=== PATIENT | female | born 1950 | race Caucasian/White ===

== ENCOUNTER 2019-01-04 21:59 | Emergency (ER) | payer MEDICARE ==
[2019-01-04] MEDS ORDERED: NORMAL SALINE 1000 ML 1,000 ML IV ONE (23:16)
--- NOTE | 2019-01-04 23:18 | ER Document Report ---
ED GI/ - General Chief Complaint: Nausea/Vomiting Stated Complaint: NAUSEA,VOMITING,DIZZINESS Time Seen by Provider: 01/04/19 23:03 Notes: Patient is a 68-year-old female that comes emergency department for chief complaint of vomiting, diarrhea, generalized abdominal pain, and she believes she passed out after becoming very dizzy. She states she vomited at least 5 times, had at least this many episodes of nonbloody diarrhea, got very ligh theaded, laid on the couch, and blacked out. She denies any fall injury. She denies fever, flank pain, headache. No obvious sick contacts, denies recent products or recent travel. Past medical history of Alzheimer's, fibromyalgia, family at bedside. TRAVEL OUTSIDE OF THE [place] IN LAST 30 DAYS: No - Related Data Allergies/Adverse Reactions: No Known Allergies Allergy (Unverified 01/04/19 22:20) Past Medical History - General Information source: Patient - Social History Smoking Status: Never Smoker Chew tobacco use (# tins/day): No Frequency of alcohol use: None Drug Abuse: None Lives with: Family Family History: Reviewed & Not Pertinent Patient has suicidal ideation: No Patient has homicidal ideation: No - Past Medical History Cardiac Medical History: Reports: Hx Hypercholesterolemia, Hx Hypertension Psychiatric Medical History: Reports: Hx Depression - anxiety - Immunizations Immunizations up to date: Yes Hx Diphtheria, Pertussis, Tetanus Vaccination: Yes Review of Systems - Review of Systems Constitutional: See HPI EENT: No symptoms reported Cardiovascular: See HPI Respiratory: No symptoms reported Gastrointestinal: See HPI Genitourinary: No symptoms reported Female Genitourinary: No symptoms reported Musculoskeletal: No symptoms reported Skin: No symptoms reported Hematologic/Lymphatic: No symptoms reported Neurological/Psychological: See HPI Physical Exam - Vital signs Vitals: Resp 19 01/04/19 22:05 - Notes Notes: GENERAL: Alert, interacts well. No acute distress. HEAD: Normocephalic, atraumatic. EYES: Pupils equal, round, and reactive to light. Extraocular movements intact. ENT: Oral mucosa moist, tongue midline. Oropharynx unremarkable. Airway patent. NECK: Full range of motion. Supple. Trachea midline. LUNGS: Clear to auscultation bilaterally, no wheezes, rales, or rhonchi. No respiratory distress. HEART: Regular rate and rhythm. No murmur ABDOMEN: Mild generalized abdominal tenderness, nonspecific, no guarding, bowel sounds are fast GENITOURINARY: Deferred EXTREMITIES: Moves all 4 extremities spontaneously. No edema, normal radial and dorsalis pedis pulses bilaterally. No cyanosis. BACK: no cervical, thoracic, lumbar midline tenderness. No saddle anesthesia, normal distal neurovascular exam. Moves all extremities in full range of motion. NEUROLOGICAL: Alert and oriented x3. Normal speech. Cranial nerves II through XII grossly intact. PSYCH: Normal affect, normal mood. SKIN: Slightly pale Course - Re-evaluation Re-evalutation: Patient initially slightly pale and has very mild generalized abdominal tenderness. Vital signs unremarkable. Patient was given IV fluids and symptom management. CBC unremarkable, chemistry unremarkable, urinalysis nonspecific w ith ketones. EKG unremarkable, troponin negative. Stool white cells negative. On reevaluation patient smiling and well-appearing, states she feels 100% better, no current complaints. She also tells me now that she had eaten shrimp for dinner and within a short time following she started feeling abdominal upset and then started vomiting and diarrhea preceding her reported syncopal episode which happened after multiple episodes. She requests to go home. Repeat abdominal exam is completely benign. Based on her work-up, improvement, history, I suspect she had ingestion of a toxin or has a viral illness. Orthostatic vital signs were performed and completely unremarkable. Patient will be discharged with follow-up, symptom management, return precautions which were discussed with patient and significant other. They state appreciation and agreement. C. difficile negative - Vital Signs Vital signs: Temp Pulse Resp BP Pulse Ox 97.8 F 76 11 L 130/75 H 99 01/04/19 22:56 01/05/19 01:48 01/05/19 02:01 01/05/19 02:00 01/05/19 02:01 - Laboratory Result Diagrams: 01/04/19 22:35 01/04/19 22:35 Laboratory results interpreted by me: 01/04/19 01/04/19 01/04/19 22:35 22:35 23:55 MCV 99 H MCH 34.2 H Greer % (Auto) 1.7 L Absolute Neuts (auto) 8.3 H Seg Neutrophils % 80.9 H Est GFR (MDRD) Non-Af 58 L Direct Bilirubin 0.6 H AST 38 H Urine Protein 100 H Urine Ketones TRACE H Urine Blood MODERATE H Urine Bilirubin SMALL H Urine Urobilinogen 4.0 H - EKG Interpretation by Me Additional EKG results interpreted by me: EKG shows sinus rhythm at a rate of 77, QTC of 485, normal axis, no T wave inversions or ST segment changes in consecutive leads, slightly flattened T waves in leads I and aVL. Discharge - Discharge Clinical Impression: Nausea vomiting and diarrhea Episode of syncope Qualifiers: Syncope type: unspecified Qualified Code(s): R55 - Syncope and collapse Abdominal pain Qualifiers: Abdominal location: generalized Qualified Code(s): R10.84 - Generalized abdominal pain Condition: Stable Disposition: HOME, SELF-CARE Additional Instructions: Your evaluation and work-up are reassuring. My strong suspicion is that you ingested a food toxin that your body violently rejected with vomiting and diarrhea. Take the medications as prescribed if needed, start with plenty of fluids and bland diet, slowly progressed. Symptoms should simply resolve. We do have a stool culture growing in our lab. Return if you worsen including severe abdominal pain, fever, uncontrolled vomiting, or any other concerning or worsening symptoms. Prescriptions: Ondansetron [Zofran Odt 4 mg Tablet] 1 - 2 tab PO Q4H PRN #15 tab.rapdis PRN Reason: For Nausea/Vomiting
[2019-01-04] MEDS ORDERED: MORPHINE SULFATE 10 MG/ML INJ IV ONE (23:34)
[2019-01-04 23:47] LABS: ABSOLUTE BASOPHILS # (AUTO) 0.1 10^3/uL (0.0-0.2); ABSOLUTE EOSINOPHILS # (AUTO) 0.1 10^3/uL (0.0-0.6); ABSOLUTE LYMPHOCYTES (AUTO) 1.6 10^3/uL (0.5-4.7); ABSOLUTE MONOCYTES (AUTO) 0.2 10^3/uL (0.1-1.4); ABSOLUTE NEUT (AUTO) 8.3 10^3/uL (1.7-8.2); BASOPHILS % (AUTO) 0.5 % (0-2); EOSINOPHILS % (AUTO) 1.3 % (0-6); HEMATOCRIT 40.5 % (36.0-47.0); HEMOGLOBIN 14.1 g/dL (12.0-15.5); LYMPHOCYTES % (AUTO) 15.6 % (13-45); MEAN CORPUSCULAR HEMOGLOBIN 34.2 pg (27.0-33.4); MEAN CORPUSCULAR HGB CONC 34.7 g/dL (32.0-36.0); MEAN CORPUSCULAR VOLUME 99 fl (80-97); MONOCYTES % (AUTO) 1.7 % (3-13); PLATELET COUNT 283 10^3/uL (150-450); RED BLOOD COUNT 4.11 10^6/uL (3.72-5.28); SEGMENTED NEUTROPHILS % (AUTO) 80.9 % (42-78); TOTAL CELLS COUNTED % (AUTO) 100 %; WHITE BLOOD COUNT 10.2 10^3/uL (4.0-10.5)
[2019-01-05] LABS: ALBUMIN 4.6 g/dL (3.5-5.0); ALKALINE PHOSPHATASE 57 U/L (38-126); ANION GAP 12 (5-19); ASPARTATE AMINO TRANSFERASE 38 U/L (14-36); BILIRUBIN,DIRECT 0.6 mg/dL (0.0-0.4); BILIRUBIN,TOTAL 0.9 mg/dL (0.2-1.3); BLOOD UREA NITROGEN 16 mg/dL (7-20); CALCIUM 10.2 mg/dL (8.4-10.2); CARBON DIOXIDE 26 mmol/L (22-30); CHLORIDE 105 mmol/L (98-107); GLUCOSE 107 mg/dL (75-110); POTASSIUM 3.8 mmol/L (3.6-5.0); TOTAL PROTEIN 7.9 g/dL (6.3-8.2)
--- NOTE | 2019-01-05 00:17 | EKG REPORT ---
SEVERITY:- BORDERLINE ECG - SINUS RHYTHM BORDERLINE T ABNORMALITIES, ANT-LAT LEADS : Confirmed by: Gonsalo Vicente 05-Jan-2019 00:17:07
[2019-01-05 00:29] LABS: APPEARANCE,URINE CLEAR; BILIRUBIN,URINE SMALL (NEGATIVE); COLOR,URINE DARK YELLOW; GLUCOSE, URINE NEGATIVE (NEGATIVE); KETONES,URINE TRACE mg/dL (NEGATIVE); LEUKOCYTE ESTERASE,URINE NEGATIVE (NEGATIVE); NITRITE,URINE NEGATIVE (NEGATIVE); PROTEIN,URINE 100 mg/dL (NEGATIVE); URINE SPECIFIC GRAVITY 1.017
--- NOTE | 2019-01-05 00:59 | RADIOLOGY REPORT (SQ) ---
EXAM DESCRIPTION: XR CHEST 1 VIEW COMPLETED DATE/TME: 01/04/2019 23:15 CLINICAL HISTORY: syncopal episode COMPARISON: None. FINDINGS: Single frontal view of the chest. Cardiomediastinal silhouette: Normal size and contour. Lungs: No consolidation, pneumothorax, or pleural effusion. Bilateral nipple shadows. Bones: No acute osseous abnormality. Leads overlie the chest. Upper abdomen: No abnormality identified. IMPRESSION: 1. No acute pulmonary process identified.
[2019-01-05] MEDS ORDERED: HYDROCODONE/ACETAMINOPHEN 5-325 MG (6 TAB/ER DISP) PO PRN (01:47)
[2019-01-05] MEDS ORDERED: ONDANSETRON ODT 4 MG TAB (6 TAB/ER DISP) PO PRN (01:48)
[2019-01-05 03:17] VITALS: BP 130/75
[2019-01-05 04:35] LABS: C DIFFICILE GDH NEGATIVE (NEGATIVE)
== END 2019-01-05 02:15 | disposition home or self-care (01) ==
LOC: ER 21:59
DX: R11.2 Nausea with vomiting, unspecified (principal); R19.7 Diarrhea, unspecified; R10.84 Generalized abdominal pain; R10.817 Generalized abdominal tenderness; R55 Syncope and collapse; R42 Dizziness and giddiness; I10 Essential (primary) hypertension
CPT/HCPCS: 93005; 36415; 89055; 87205; 83690; 85025; 80053; 81001; 84484; 87324; 87449; 71045; 93010; J2270; J7030; A9270 ×2; 87045